=== PATIENT | male | born 1985 | race Caucasian/White ===

== ENCOUNTER 2020-11-10 17:53 | Outpatient (REF) | payer MEDICAID, SELFPAY ==
[2020-11-10 20:16] LABS: HCT 40.9 % (40.0-50.0); HGB 13.5 g/dL (13.5-17.5); MCH 29.2 pg (27.0-33.0); MCV 88.3 fL (80-95); MPV 10.9 fL (8.0-11.0); Platelet Count 226 10^3/uL (130-400); RBC 4.63 10^6/uL (4.36-5.78); RDW 12.7 % (11.8-14.1); RDW-SD 41.3 fL; WBC 8.37 10^3/uL (4.4-10.8)
[2020-11-10 20:31] LABS: ALT 33 U/L (16-63); AST 19 U/L (15-37); Alkaline Phosphatase 98 U/L (46-116); Anion Gap 10.2 mmol/L (3-11); BUN 17 mg/dL (7-18); Bilirubin, Total 0.3 mg/dL (0.2-1.0); CO2 28.8 mmol/L (21.0-32.0); CREATININE 0.8 mg/dL (0.70-1.30); Calcium 9.1 mg/dL (8.5-10.1); Calculated LDL 116 mg/dL (<100); Chloride 103 mmol/L (98-107); Cholesterol 187 mg/dL (<200); Glucose 99 mg/dL (74-106); HDL Cholesterol 48 mg/dL (40-60); Potassium 4.3 mmol/L (3.5-5.1); Sodium 142 mmol/L (136-145); Total Protein 7.2 g/dL (6.4-8.2); Triglyceride 116 mg/dL (<150)
[2020-11-13 10:15] LABS: HBs Antibody, Quant <3.1 mIU/mL (See Note); Hepatitis B Surface Ab Negative (See Note)
[2020-11-13 10:26] LABS: Hepatitis B Surface Ag Negative (Negative)
[2020-11-13 10:53] LABS: Hepatitis C Ab w Rflx HCV PCR Negative (Negative)
[2020-11-13 11:06] LABS: Hep A Total Ab w Rflx IgM Negative (Negative)
[2020-11-13 11:18] LABS: Hep B Core Antibody Negative (Negative)
== END 2020-11-10 17:54 | disposition home or self-care (01) ==
LOC: NCHCN 17:53
PROVIDERS: Visit Provider Registered Nurse
DX: F11.10 Opioid abuse, uncomplicated (principal); Z13.220 Encounter for screening for lipoid disorders; Z11.59 Encounter for screening for other viral diseases
CPT/HCPCS: 80053; 80061; 85027; 86704; 86706; 86709; 86803; 87340

== ENCOUNTER 2020-12-07 15:03 | Outpatient (REF) | payer MEDICAID, SELFPAY ==
[2020-12-08 10:02] LABS: HIV-1/2 Ag & Ab Screen Negative (Negative)
== END 2020-12-07 15:04 | disposition home or self-care (01) ==
LOC: NCHCN 15:03
PROVIDERS: Visit Provider Registered Nurse
DX: Z11.4 Encounter for screening for human immunodeficiency virus [HIV] (principal)
CPT/HCPCS: 87389

== ENCOUNTER 2020-12-27 14:37 | Outpatient (REF) | payer MEDICAID, SELFPAY ==
[2020-12-27 21:15] LABS: Iron 82 ug/dL (65-175); Total Iron Binding Capacity 343 ug/dL (250-450); Transferrin Sat 24 % (20-55)
[2020-12-27 21:31] LABS: Ferritin 92 ng/mL (26-388)
== END 2020-12-27 14:38 | disposition home or self-care (01) ==
LOC: NCHCN 14:37
PROVIDERS: Visit Provider Registered Nurse
DX: G25.81 Restless legs syndrome (principal)
CPT/HCPCS: 82728; 83540; 83550

== ENCOUNTER 2021-04-27 16:55 | Outpatient (REF) | payer MEDICAID, SELFPAY ==
[2021-04-27 21:17] LABS: ALT 41 U/L (16-63); AST 34 U/L (15-37); Albumin 4.2 g/dL (3.4-5.0); Alkaline Phosphatase 104 U/L (46-116); Bilirubin, Total 0.3 mg/dL (0.2-1.0); Total Protein 7.4 g/dL (6.4-8.2)
[2021-04-27 21:28] LABS: Bilirubin, Direct 0.1 mg/dL (0.0-0.2)
== END 2021-04-27 16:56 | disposition home or self-care (01) ==
LOC: NCHCN 16:55
PROVIDERS: Visit Provider Registered Nurse
DX: Z79.899 Other long term (current) drug therapy (principal)
CPT/HCPCS: 80076

== ENCOUNTER 2021-11-24 13:05 | Emergency (ER) | payer OTHER, SELFPAY ==
[2021-11-24 13:11] VITALS: BP 130/82; PULSE 77; RESP 18; TEMP 35.9; O2SAT 99
--- NOTE | 2021-11-24 13:26 | ED.GENADUL_ITS ---
Discharge Plan Disposition Patient Disposition: HOME Condition: Stable Discharge Details Clinical Impression: Dehiscence of wound of skin Primary Care Provider: Unknown,Unknown ED Provider: Jose Antonio Stuart Home Meds and New Rx's Prescriptions: New sulfamethoxazole-trimethoprim [Bactrim DS] 800-160 mg tablet 1 tab PO BID 5 Days Qty: 10 0RF No Action Vivitrol 380 mg suspension,extended rel recon 380 mg IM Q4W Label Comments: Inject 1 mg intramuscularly every four weeks Discharge Instructions Instructions: Wound Dehiscence (ED) Additional Instructions: It is very important that you follow-up with your local orthopedist as soon as possible for reassessment of your wound. Otherwise take antibiotics as prescribed and monitor symptoms. If you develop any new or significant worsening of symptoms return immediately to the emergency department for reassessment. Referrals: Primary Care Provider [Outside] (Follow-up with your primary care provider or local orthopedist for reassessment of your wound. It is recommended that you call their office on Friday morning. ) Discharge Data Discharge Date/Time-TO BE ENTERED AT DEPARTURE: 11/24/21 13:40 Medical Decision Making Patient presenting to the emergency department for chief complaint of left leg wound opening. Patient reports that he suffered a workplace injury when a large slab of [place] fell and struck him on the shins. He had to have significant skin repair performed due to avulsion type injury of the skin to his left anterior gann. He has been followed by local orthopedics but over the past couple days has noticed some increased pain, subjective fever, and drainage from the wound site. Patient states that sutures are all in place and denies any other symptoms. Physical exam shows significant wound with suture repair to the left anterior gann with the superior aspect having some dehiscence that is slight. No surrounding cellulitis and no other worrisome findings on exam. I feel this might be some drainage due to secondary intention versus early infection. Will treat patient with antibiotics and have patient follow-up with his local Ortho group. After discussion of diagnosis and plan of care patient has no further needs, questions, or concerns and states clear understanding to return to the emergency department for any worsening symptoms. This documentation was generated using [employer] system, please disregard any oddities of phrase or misspellings. HPI General Mode of arrival: ambulatory . Date/Time Provider Initiated Documentation: 11/24/21 13:16 . Limitations to Documentation: no limitations . Information obtained by: patient and RN notes reviewed . History of Present Illness 36 year old M presents to the emergency department with the chief complaint of left leg infection , described as mild and similar to prior episodes, and is localized to the left and lower extremity. Patient reports no radiation. Patient started experiencing this day(s) (2) and it has been constant. No relieving factors improve symptom(s), No exacerbating factors reported . Patient did receive the following treatments prior to arrival, none Related Data Home Medications Medication Instructions Recorded Confirmed naltrexone microspheres 380 mg 380 mg IM Q4W 11/24/21 11/24/21 intramuscular suspension,extended release (Vivitrol) sulfamethoxazole 800 1 tab PO BID 5 days #10 tabs 11/24/21 mg-trimethoprim 160 mg tablet (Bactrim DS) Previous Rx's Medication Instructions Recorded sulfamethoxazole 800 1 tab PO BID 5 days #10 tabs 11/24/21 mg-trimethoprim 160 mg tablet (Bactrim DS) Allergies Allergy/AdvReac Type Severity Reaction Status Date / Time amoxicillin Allergy Hives Unverified 11/24/21 13:15 General Stated Complaint: Cellulitis KWASI: 3 Review of Systems Constitutional Constitutional: Denies fatigue, Reports fever(s) (Subjective), Denies headache(s ), Denies malaise and Denies poor appetite ENT Ears, Nose, Mouth, and Throat: Denies headache(s) Cardiovascular Cardiovascular: Denies chest pain and Denies dyspnea Respiratory Respiratory: Denies cough and Denies dyspnea Gastrointestinal Gastrointestinal: Denies abdominal pain, Reports nausea and Denies vomiting Musculoskeletal Musculoskeletal: Reports as per HPI Integumentary/Breasts Skin/Breast: Reports as per HPI and Reports wounds Neurologic Neurologic: Denies headache(s) and Denies paresthesias Endocrine Endocrine: Denies fatigue PFSH All Active Problems Dehiscence of wound of skin (Acute) Social History Smoking risk assessment performed?: No Alcohol Intake: former Substance use type: former substance user Do you feel safe at home: Yes Do you feel safe in your relationship?: Yes Exam Const General: cooperative, no acute distress and not ill appearing Orientation: alert, awake and oriented x3 Resp Effort & Inspection: normal respiratory effort, able to speak in complete sentences and no respiratory distress Neuro General: patient alert, patient awake, patient oriented x3, moves all extremities and no focal motor deficits Sensory Exam: no sensory deficits noted Extrem Left lower extremity: lower leg Details: tenderness Location: of the proximal tibia and laceration proximal lower leg anterior Details: with motor nerve f unction intact and with sensation intact; not actively bleeding Course Vital Signs Vital signs: Vital Signs Temperature 35.9 C L 11/24/21 13:11 Pulse 77 11/24/21 13:11 Respiratory Rate 18 11/24/21 13:11 Blood Pressure 130/82 11/24/21 13:11 Pulse Oximetry 99 11/24/21 13:11 Temperature 35.9 C L 11/24/21 13:11 Temperature Source Tympanic 11/24/21 13:11 Pulse 77 11/24/21 13:11 Respiratory Rate 18 11/24/21 13:11 Respiratory Effort Non-Labored 11/24/21 13:17 Blood Pressure 130/82 11/24/21 13:11 Blood Pressure Position Sitting 11/24/21 13:11 Pulse Oximetry 99 11/24/21 13:11 Oxygen Delivery Method Room Air 11/24/21 13:11 Oxygen Flow Rate 0 11/24/21 13:11
[2021-11-24] MEDS: Sulfameth/Trimeth DS, 2 TABS/BTL 1 TAB PO (13:37)
[2021-11-24] MEDS: Sulfameth/Trimeth DS TAB 1 TAB PO (13:37)
== END 2021-11-24 13:40 | disposition home or self-care (01) ==
PROVIDERS: Emergency Provider Nurse Practitioner Family
DX: T81.33XA Disruption of traumatic injury wound repair, initial encounter (principal); W20.8XXA Other cause of strike by thrown, projected or falling object, initial encounter
CPT/HCPCS: 99283

== ENCOUNTER 2022-03-08 16:44 | Outpatient (REF) | payer MEDICAID, SELFPAY ==
[2022-03-08 21:23] LABS: AST < 5 U/L (15-37); Bilirubin, Direct 0.1 mg/dL (0.0-0.2)
[2022-03-08 21:32] LABS: ALT < 6 U/L (16-63); Alkaline Phosphatase 2 U/L (46-116); Bilirubin, Total < 0.1 mg/dL (0.2-1.0)
[2022-03-08 21:49] LABS: Total Protein 7.8 g/dL (6.4-8.2)
== END 2022-03-08 16:45 | disposition home or self-care (01) ==
LOC: NCHCN 16:44
PROVIDERS: Visit Provider Registered Nurse
DX: F11.99 Opioid use, unspecified with unspecified opioid-induced disorder (principal)
CPT/HCPCS: 80076

== ENCOUNTER 2022-04-05 19:47 | Outpatient (REF) | payer MEDICAID, SELFPAY ==
[2022-04-05 20:59] LABS: Abs Immature Grans 0.03 10^3/uL (0.0-0.06); Absolute Basophil Count 0.03 10^3/uL (0.0-0.2); Absolute Monocyte Count 0.76 10^3/uL (0.1-0.8); Basophils % 0.2; Eosinophils % 1.7; HCT 40.6 % (40.0-50.0); HGB 13.2 g/dL (13.5-17.5); Immature Grans % 0.2; MCH 28.8 pg (27.0-33.0); MCHC 32.5 % (32.0-36.0); MCV 89 fL (80-95); MPV 10.4 fL (8.0-11.0); Neutrophils % 68.9; Platelet Count 247 10^3/uL (130-400); RBC 4.59 10^6/uL (4.36-5.78); RDW-SD 42.2 fL; WBC 12.62 10^3/uL (4.4-10.8)
[2022-04-05 21:01] LABS: Absolute Eosinophil Count 0.21 10^3/uL (0.0-0.7)
[2022-04-05 21:25] LABS: ALT 19 U/L (16-63); AST 14 U/L (15-37); Albumin 3.7 g/dL (3.4-5.0); Alkaline Phosphatase 110 U/L (46-116); Anion Gap 7.5 mmol/L (3-11); BUN 17 mg/dL (7-18); Bilirubin, Total 0.2 mg/dL (0.2-1.0); CO2 28.5 mmol/L (21.0-32.0); CREATININE 0.9 mg/dL (0.70-1.30); Calcium 9.1 mg/dL (8.5-10.1); Chloride 106 mmol/L (98-107); Estimated GFR 114.93 (mL/min/1.73m2); Glucose 107 mg/dL (74-106); Magnesium 1.9 mg/dL (1.8-2.4); Potassium 4.1 mmol/L (3.5-5.1); Sodium 142 mmol/L (136-145); TSH 0.54 uIU/mL (0.36-3.74); Total Protein 7.4 g/dL (6.4-8.2)
== END 2022-04-05 19:48 | disposition home or self-care (01) ==
LOC: NCHCN 19:47
PROVIDERS: Visit Provider Registered Nurse
DX: R42 Dizziness and giddiness (principal); Z79.899 Other long term (current) drug therapy; R79.89 Other specified abnormal findings of blood chemistry
CPT/HCPCS: 80053; 83735; 84443; 85025

== ENCOUNTER 2022-10-01 21:34 | Outpatient (REF) | payer MEDICAID, SELFPAY ==
[2022-10-01 21:17] LABS: ALT 21 U/L (16-63); AST 17 U/L (15-37); Albumin 3.7 g/dL (3.4-5.0); Alkaline Phosphatase 116 U/L (46-116); Bilirubin, Direct 0.1 mg/dL (0.0-0.2); Bilirubin, Total 0.2 mg/dL (0.2-1.0); Total Protein 7.4 g/dL (6.4-8.2)
== END 2022-10-01 21:35 | disposition home or self-care (01) ==
LOC: NCHCN 21:34
PROVIDERS: Visit Provider Nurse Practitioner Family
DX: F11.988 Opioid use, unspecified with other opioid-induced disorder
CPT/HCPCS: 80076